=== PATIENT | female | born 1955 | race Caucasian/White ===

== ENCOUNTER → 2020-03-31 | Day surgery (SDC) | payer MEDICAID ==
[2020-03-28 14:09] LABS: PLATELET COUNT 222 x10^3mcL (179-408)
[2020-03-28 14:13] LABS: RED CELL DISTRIBUTION WIDTH 15.2 % (12.3-17.7)
[2020-03-28 14:32] LABS: ALKALINE PHOSPHATASE 91 U/L (46-116); ALT/SGPT 43 U/L (14-59); AST/SGOT 32 U/L (15-37); BILIRUBIN TOTAL 1.1 mg/dL (0.20-1.00); CALCIUM 8.8 mg/dL (8.5-10.1); CHLORIDE SERUM 105 mmol/L (98-107); CREATININE SERUM 0.8 mg/dL (0.6-1.0); GFR1 > 60 mL/min; GLUCOSE SERUM 88 mg/dL (74-106); POTASSIUM SERUM 4.1 mmol/L (3.5-5.1); SODIUM SERUM 140 mmol/L (136-145); TOTAL PROTEIN, SERUM 7.3 g/dL (6.4-8.2)
[2020-03-28 14:33] LABS: ALBUMIN 3.3 g/dL (3.4-5.0)
[~2020-03-31] VITALS: Ht 160 cm; Wt 127.0 kg
[2020-03-31 09:23] VITALS: BP 163/103
[2020-03-31 16:32] VITALS: BP 149/86
== END | disposition home or self-care (01) ==
LOC: DS 07:34 → OR 12:00 → DS 12:00
PROVIDERS: ATTEND Surgery
DX: D05.81 Other specified type of carcinoma in situ of right breast (principal); N60.91 Unspecified benign mammary dysplasia of right breast; I10 Essential (primary) hypertension; E66.9 Obesity, unspecified; Z68.42 Body mass index [BMI] 45.0-49.9, adult
CPT/HCPCS: J0131; J0690; J2001; J2175; J2250; J2704; J3010; J3490; J7120